=== PATIENT | male | born 1960 | race Caucasian/White ===

== ENCOUNTER 2016-08-17 12:55 | Inpatient (IN) | payer OTHER ==
[2016-08-17] VITALS (8 sets, daily range): BP systolic 112–143; BP diastolic 66–78; PULSE 71–98; RESP 16–18; TEMP 97.8–98; O2SAT 94–99
[~2016-08-17] VITALS: Ht 182.9 cm; Wt 97.1 kg
[~2016-08-17 12:55] MED LIST: ATOR20TA PO; AZIT500T2 PO; LISI-363 PO; METO25CR PO
[2016-08-17] MEDS ORDERED: LISI-515 PO (13:06)
[2016-08-17] MEDS ORDERED: ATOR20TA15 PO (13:06)
[2016-08-17] MEDS ORDERED: METO25TA3 PO (13:06)
[2016-08-17] MEDS ORDERED: SODIUM CHLORIDE 0.9% FLUSH 5 ML FLUSH IVF PRN (13:15)
[2016-08-17 13:23] LABS: AUTOMATED NEUTROPHIL # 4.3 TH/MM3 (1.8-7.7); BASOPHIL % 0.5 % (0.0-2.0); EOSINOPHIL # 0.1 TH/MM3 (0-0.4); EOSINOPHIL % 1.5 % (0.0-4.0); HEMATOCRIT 44.8 % (39.0-51.0); HEMO FLAGS DIFF FINAL; LYMPHOCYTE # 1.2 TH/MM3 (1.0-4.8); MEAN CELL VOLUME 89.4 FL (80.0-100.0); MEAN CORPUSCULAR HEMOGLOBIN 31.9 PG (27.0-34.0); MEAN CORPUSCULAR HGB CONC 35.7 % (32.0-36.0); MONO % 11.3 % (0.0-8.0); NEUT % 67.7 % (16.0-70.0); PLATELET COUNT 151 TH/MM3 (150-450); RED BLOOD COUNT 5.02 MIL/MM3 (4.50-5.90); RED CELL DISTRIBUTION WIDTH 12.8 % (11.6-17.2); WHITE BLOOD COUNT 6.3 TH/MM3 (4.0-11.0)
[2016-08-17 13:36] LABS: APTT (PATIENT) 24.9 SEC (24.3-30.1); PROTHROMBIN TIME - PATIENT 11.6 SEC (9.8-11.6)
[2016-08-17 13:39] LABS: BICARBONATE 28.5 MEQ/L (21.0-32.0)
--- NOTE | 2016-08-17 14:21 | RADRPT ---
EXAM DATE/TIME: 08/17/2016 13:27 [facility] COMPARISON: No previous studies available for comparison. INDICATIONS : Feeling dizzy with low blood pressure,syncope. RADIATION DOSE: 43.69 CTDIvol (mGy) MEDICAL HISTORY : Cardiovascular disease. Hypertension. SURGICAL HISTORY : None. ENCOUNTER: Initial ACUITY: 1 day PAIN SCALE: 0/10 LOCATION: cranial TECHNIQUE: Multiple contiguous axial images were obtained of the head. Using automated exposure control and adj ustment of the mA and/or kV according to patient size, radiation dose was kept as low as reasonably a chievable to obtain optimal diagnostic quality images. FINDINGS: CEREBRUM: The ventricles are normal for age. No evidence of midline shift, mass lesion, hemorrhage or acute in farction. No extra-axial fluid collections are seen. POSTERIOR FOSSA: The cerebellum and brainstem are intact. The 4th ventricle is midline. The cerebellopontine angle i s unremarkable. EXTRACRANIAL: The visualized portion of the orbits is intact. SKULL: The calvaria is intact. No evidence of skull fracture. CONCLUSION: Normal examination. Kristy Lieberman MD on August 17, 2016 at 13:52 Board Certified Radiologist. This report was verified electronically.
[2016-08-17 14:28] LABS: BACTERIA, URINE RARE /hpf; BLOOD, URINE NEG (NEG); GLUCOSE,URINE TRACE mg/dL (NEG); HYALINE CAST, URINE 14 /lpf (RARE); KETONE, URINE NEG (NEG); MUCUS URINE FEW /lpf (OCC); NITRITE,URINE NEG (NEG); PH, URINE 5.5 (5.0-8.5); SQUAMOUS EPITHELIAL CELL URINE 1 /hpf (0-5); URINE COLOR YELLOW (YELLW/STRAW)
[2016-08-17 14:31] LABS: COMMENT (UR) CATH-CULTURE IND; CULTURE IF INDICATED CATH CULTURE IND
--- NOTE | 2016-08-17 14:41 | PD ---
HPI Chief Complaint: Dizziness Time Seen by Provider: 12:58 Travel History International Travel<30 days: No Contact w/Intl Traveler<30days: No History of Present Illness HPI 56-year-old male came to the emergency room brought by EMS from his doctor's office after having a syncopal episode. Patient says that he has been sick with flulike symptoms for past 4-5 days. He stopped having fever 2-3 days ago. He was about to be discharged from his primary care's office with a prescription for Zithromax when he passed out while he was sitting on the chair. Patient says that this morning when he was taking shower he was dizzy as well. No history of vomiting or diarrhea. In the emergency room patient was noticed to be in atrial fibrillation. In fact there were two 12-lead EKG sent from the primary care's office that showed the atrial fibrillation as well. Upon asking patient said that he had history of A. fib 5 years ago for which she received abrasion after which she was in normal sinus rhythm. This particular A. fib is new for him. He is not on any anticoagulation. No history of chest pain. [facility] Past Medical History Narrative Medical List of his past medical history as reviewed from the nursing note. Cardiovascular Problems: Yes (HBP) High Cholesterol: Yes Diminished Hearing: No Hypertension: Yes Tetanus Vaccination: > 5 Years Influenza Vaccination: Yes Past Surgical History Cardiac Surgery: Yes (ABLATION) Social History Alcohol Use: Yes (OCASSIONALLY) Tobacco Use: No Substance Use: No Allergies-Medications (Allergen,Severity, Reaction): Coded Allergies: No Known Allergies (Unverified , 08/17/16) Comments No known drug allergies. Reported Meds & Prescriptions Reported Meds & Active Scripts Active Reported Atorvastatin (Atorvastatin Calcium) 20 Mg Tab 20 Mg PO DAILY Metoprolol Tartrate 25 Mg Tab 25 Mg PO DAILY Lisinopril 20 Mg Tab 20 Mg PO DAILY Narrative Medication List of his home medications reviewed from the nursing note. Review of Systems Except as stated in HPI: all other systems reviewed are Neg Physical Exam Narrative GENERAL: Awake, alert, moderate distress, obese SKIN: Warm and dry. HEAD: Atraumatic. Normocephalic. EYES: Pupils equal and round. No scleral icterus. No injection or drainage. ENT: No nasal bleeding or discharge. Mucous membranes pink and moist. NECK: Trachea midline. No JVD. CARDIOVASCULAR: Regular rate and rhythm. No murmur appreciated. RESPIRATORY: No accessory muscle use. Clear to auscultation. Breath sounds equal bilaterally. GASTROINTESTINAL: Abdomen soft, non-tender, nondistended. Hepatic and splenic margins not palpable. MUSCULOSKELETAL: No obvious deformities. No clubbing. No cyanosis. No edema. NEUROLOGICAL: Awake and alert. No obvious cranial nerve deficits. Motor grossly within normal limits. Normal speech. PSYCHIATRIC: Appropriate mood and affect; insight and judgment normal. Data Data Last Documented VS Vital Signs Date Time Temp Pulse Resp B/P Pulse Ox O2 Delivery O2 Flow Rate FiO2 08/17/16 14:00 86 16 118/69 98 Room Air 08/17/16 12:56 98.0 Orders Electrocardiogram (08/17/16 13:06) Prothrombin Time / Inr (Pt) (08/17/16 13:06) Act Partial Throm Time (Ptt) (08/17/16 13:06) Complete Blood Count With Diff (08/17/16 13:06) Basic Metabolic Panel (Bmp) (08/17/16 13:06) Creatine Kinase (Cpk) (08/17/16 13:06) Troponin I (08/17/16 13:06) Urinalysis - C+S If Indicated (08/17/16 13:06) Ct Brain W/O Iv Contrast(Rout) (08/17/16 13:06) Ecg Monitoring (08/17/16 13:06) Iv Access Insert/Monitor (08/17/16 13:06) Oximetry (08/17/16 13:06) Sodium Chloride 0.9% Flush (Ns Flush) (08/17/16 13:15) Urine Culture (08/17/16 14:00) Sodium Chlor 0.9% 1000 Ml Inj (Ns 1000 M (08/17/16 14:45) Heparin Infusion BENJAMIN.Q1H (08/17/16 14:36) Heparin Inj (Heparin Inj) (08/17/16 14:45) Heparin-D5w Inj (Heparin-D5w Inj) (08/17/16 14:45) Act Partial Throm Time (Ptt) (08/17/16 14:36) Cbc No Diff, Includes Plts (08/17/16 14:36) Act Partial Throm Time (Ptt) (08/17/16 21:36) Occult Blood (Hemoccult) Stool (08/17/16 14:36) Admit Order (Ed Use Only) (08/17/16 14:48) Labs Laboratory Tests Test 08/17/16 08/17/16 13:00 14:00 White Blood Count 6.3 TH/MM3 Red Blood Count 5.02 MIL/MM3 Hemoglobin 16.0 GM/DL Hematocrit 44.8 % Mean Corpuscular Volume 89.4 FL Mean Corpuscular Hemoglobin 31.9 PG Mean Corpuscular Hemoglobin 35.7 % Concent Red Cell Distribution Width 12.8 % Platelet Count 151 TH/MM3 Mean Platelet Volume 10.7 FL Neutrophils (%) (Auto) 67.7 % Lymphocytes (%) (Auto) 19.0 % Monocytes (%) (Auto) 11.3 % Eosinophils (%) (Auto) 1.5 % Basophils (%) (Auto) 0.5 % Neutrophils # (Auto) 4.3 TH/MM3 Lymphocytes # (Auto) 1.2 TH/MM3 Monocytes # (Auto) 0.7 TH/MM3 Eosinophils # (Auto) 0.1 TH/MM3 Basophils # (Auto) 0.0 TH/MM3 CBC Comment DIFF FINAL Differential Comment Prothrombin Time 11.6 SEC Prothromb Time International 1.0 RATIO Ratio Activated Partial 24.9 SEC Thromboplast Time Sodium Level 137 MEQ/L Potassium Level 5.0 MEQ/L Chloride Level 105 MEQ/L Carbon Dioxide Level 28.5 MEQ/L Anion Gap 4 MEQ/L Blood Urea Nitrogen 27 MG/DL Creatinine 1.51 MG/DL Estimat Glomerular Filtration 48 ML/MIN Rate Random Glucose 165 MG/DL Calcium Level 11.0 MG/DL Total Creatine Kinase 40 U/L Troponin I 0.02 NG/ML Urine Color YELLOW Urine Turbidity CLEAR Urine pH 5.5 Urine Specific [place] 1.018 Urine Protein 30 mg/dL Urine Glucose (UA) TRACE mg/dL Urine Ketones NEG mg/dL Urine Occult Blood NEG Urine Nitrite NEG Urine Bilirubin NEG Urine Urobilinogen LESS THAN 2.0 MG/DL Urine Leukocyte Esterase NEG Urine RBC LESS THAN 1 /hpf Urine WBC 2 /hpf Urine Squamous Epithelial 1 /hpf Cells Urine Bacteria RARE /hpf Urine Hyaline Casts 14 /lpf Urine Mucus FEW /lpf Microscopic Urinalysis Comment CATH-CULTURE IND Urine Opiates Screen NEG Urine Barbiturates Screen NEG Urine Amphetamines Screen NEG Urine Benzodiazepines Screen NEG Urine Cocaine Screen NEG Urine Cannabinoids Screen NEG MDM Medical Decision Making Medical Screen Exam Complete: Yes Emergency Medical Condition: Yes Medical Record Reviewed: Yes Interpretation(s) Twelve-lead EKG was reviewed by me. Atrial fibrillation, normal axis, PVC. Heart rate of 91 bpm. Differential Diagnosis Dehydration, new onset A. fib, pneumonia Narrative Course 2:58 PM blood test results of back and shows some dehydration. CAT scan of the head is within normal limits. I will order a chest x-ray and patient has been admitted to the family medicine residents. Critical Care Narrative Aggregate critical care time was 30 minutes. Time to perform other separately billable procedures was not included in the critical care time. My time did not include minutes spent treating any other patients simultaneously or on activities that did not directly contribute to the patient's treatment. The services I provided to this patient were to treat and/or prevent clinically significant deterioration that could result in: New-onset atrial fibrillation, heparin bolus and drip. I provided critical care services requiring my management, as noted below: Chart data review, documentation time, medication orders and management, vital sign assessments/reviewing monitor data, ordering and reviewing lab tests, ordering and interpreting/reviewing x-rays and diagnostic studies, care of the patient and discussion of the patient with the admitting physicians. Procedures EKG Prior to Arrival: Yes Diagnosis Primary Impression: New onset a-fib Additional Impressions: Syncope Qualified Code: R55 - Syncope, unspecified syncope type Orthostatic dizziness Admitting Information Admitting Physician Requests: Admit Scripts Aspirin 325 Mg [id number] Mg PO DAILY #30 TAB Ref 0 Prov:Cristian Collins MD R3 08/18/16 Benzonatate (Tessalon Perles)100 Mg [id number] Mg PO TID PRN (COUGH) #30 CAP Ref 0 Prov:Cristian Collins MD R3 08/18/16 Oseltamivir (Tamiflu)75 Mg Cap75 Mg PO BID #10 CAP Ref 0 Prov:Cristian Collins MD R3 08/18/16 Valencia Zhang MD Aug 17, 2016 14:41
[2016-08-17] MEDS ORDERED: SODIUM CHLOR 0.9% 1000 ML INJ 1,000 ML IV ONE (14:45)
[2016-08-17] MEDS ORDERED: HEPARIN SODIUM - IV 10,000 UNITS/10 ML VIAL IV ONE (14:45)
--- NOTE | 2016-08-17 14:55 | HHI.HP ---
HPI Service [facility] Medicine Primary Care Physician Shelby Khan MD Admission Diagnosis new onset atrial fibrillation, syncope, orthostatic Diagnoses: International Travel<30 Days: No Contact w/Intl Traveler<30days: No History of Present Illness This is a 56 year old male with history of atrial fibrillation s/p ablation in 2012 presenting with history of syncope. Mr. Wilburn was seen in the [facility] today for URI sxs over the past 5 days. He had been treating sxs with OTC decongestants, including Robitussin, Airborne, and Theraflu without any relief. Blood pressure was discovered to be in the 90/50 range in clinic, well below his baseline of 130/ 80. Orthostatics vital signs were obtained (supine: BP 92/48 HR 82, sittin/ 40 HR 95, standing 74/36 HR 43). Shortly after obtaining orthostatic vitals, patient had a syncopal episode. Per , he did hit his head. Episode lasted less than 1 minute. Per patient, felt lightheaded. No other prodrome sxs including palpitations or chest pain. No shaking of extremities or tongue biting. Accuchek in the clinic was 154. EKG showed atrial fibrillation with HR 94, a new finding compared to EKG in 2015. Was taken to ED via [facility] for further evaluation. EKG on admission again showed Afib with rate in the 90s. Labs on admission showed mild elevation of BUN and Cr. Patient was given a 1 L fluid bolus. Blood pressure in the 110/60s. Patient states sxs are improved since coming to the ED. Denies any dizziness at this time. No neurologic sxs, including speech difficulty, numbness/weakness in the extremities, or gait difficulty. Denies any chest pain. No palpitations. No nausea or vomiting. He denies history of prior syncopal episode or dizziness. No recent change in medications, other than OTC meds mentioned above. Mr. Wilburn had ablation for atrial fibrillation in 2012. This was done in [place]. Per patient converted within 1 hour of procedure. EKG in 2014 showed normal sinus rhythm. Patient does not see a eligibility analyst in [place]. (Cristian Collins MD R3) Review of Systems Constitutional: DENIES: Fever, Weight loss, Chills Endocrine: DENIES: Heat/cold intolerance, Polydipsia, Polyuria Eyes: DENIES: Blurred vision, Diplopia, Eye pain, Vision loss, Double Vision Ears, nose, mouth, throat: COMPLAINS OF: Nasal discharge, Throat pain, Hoarseness, Running Nose, Sinus Pain, DENIES: Tinnitus, Hearing loss, Vertigo, Oral lesions, Epistaxis, Toothache Respiratory: COMPLAINS OF: Cough, Sputum production, DENIES: Wheezing, Shortness of breath Cardiovascular: COMPLAINS OF: Syncope, DENIES: Chest pain, Palpitations, Dyspnea on Exertion Gastrointestinal: DENIES: Black stools, Bloody stools, Constipation, Diarrhea, Nausea, Vomiting Genitourinary: DENIES: Urinary frequency, Urgency, Dysuria Musculoskeletal: DENIES: Joint pain, Muscle aches, Stiffness, Back pain Integumentary: DENIES: Rash Hematologic/lymphatic: DENIES: Lymphadenopathy Neurologic: DENIES: Abnormal gait, Headache, Localized weakness, Paresthesias, Seizures, Speech Problems, Tremor, Poor Balance Psychiatric: DENIES: Mood changes (Cristian Collins MD R3) Past Family Social History Past Medical History H/O AFib treated with Ablation HTN HLD [employer] playing football Past Surgical History Sep 2012 - Cardioversion followed by Ablation Tonsillectomy as a kid Reported Medications Reported Meds & Active Scripts Active Reported Atorvastatin (Atorvastatin Calcium) 20 Mg Tab 20 Mg PO DAILY Metoprolol Tartrate 25 Mg Tab 25 Mg PO DAILY Lisinopril 20 Mg Tab 20 Mg PO DAILY (Cristian Collins MD R3) Allergies: Coded Allergies: No Known Allergies (Unverified , 08/17/16) Family History Mother, alive - healthy Father, alive - healthy, knee replacement, diverticulitis Social History Live in [facility] with of 15 years. Tobacco: denies ETOH: 6 drinks per week (wine, beer, or liquor) Drugs: denies (Cristian Collins MD R3) Physical Exam Vital Signs Vital Signs Date Time Temp Pulse Resp B/P Pulse Ox O2 Delivery O2 Flow Rate FiO2 08/17/16 14:00 86 16 118/69 98 Room Air 08/17/16 13:05 18 98 Room Air 08/17/16 13:00 78 18 98 Room Air 08/17/16 12:56 98.0 98 18 112/66 98 Physical Exam GENERAL: This is a well-nourished, well-developed patient, in no apparent distress. SKIN: No rashes, ecchymoses or lesions. Cool and dry. LEs dry with varicose veins. HEAD: Atraumatic. Normocephalic. No temporal or scalp tenderness. EYES: Pupils equal round and reactive. Extraocular motions intact. No scleral icterus. No injection or drainage. ENT: Nose without bleeding, purulent drainage or septal hematoma. Throat without erythema, tonsillar hypertrophy or exudate. Uvula midline. Airway patent. NECK: Trachea midline. No JVD or lymphadenopathy. Supple, nontender, no meningeal signs. CARDIOVASCULAR: Irregularly irregular rhythm with rate in the 90s on hard count. No murmurs. No carotid bruit appreciated. +2 radial and dorsalis pedis pulses. RESPIRATORY: Clear to auscultation. Breath sounds equal bilaterally. No wheezes , rales, or rhonchi. GASTROINTESTINAL: Abdomen soft, non-tender, nondistended. No hepato-splenomegaly , or palpable masses. No guarding. MUSCULOSKELETAL: Extremities without clubbing, cyanosis, or edema. No joint tenderness, effusion, or edema noted. No calf tenderness. No palpable cords. Negative Homans sign bilaterally. NEUROLOGICAL: Awake and alert. Cranial nerves II through XII intact. JOSE intact. Negative Rhomberg. Motor and sensory grossly within normal limits. Five out of 5 muscle strength in all muscle groups. Negative Babinski. Normal speech. Laboratory Laboratory Tests Test 08/17/16 08/17/16 13:00 14:00 White Blood Count 6.3 Red Blood Count 5.02 Hemoglobin 16.0 Hematocrit 44.8 Mean Corpuscular Volume 89.4 Mean Corpuscular Hemoglobin 31.9 Mean Corpuscular Hemoglobin 35.7 Concent Red Cell Distribution Width 12.8 Platelet Count 151 Mean Platelet Volume 10.7 Neutrophils (%) (Auto) 67.7 Lymphocytes (%) (Auto) 19.0 Monocytes (%) (Auto) 11.3 Eosinophils (%) (Auto) 1.5 Basophils (%) (Auto) 0.5 Neutrophils # (Auto) 4.3 Lymphocytes # (Auto) 1.2 Monocytes # (Auto) 0.7 Eosinophils # (Auto) 0.1 Basophils # (Auto) 0.0 CBC Comment DIFF FINAL Differential Comment Prothrombin Time 11.6 Prothromb Time International 1.0 Ratio Activated Partial 24.9 Thromboplast Time Sodium Level 137 Potassium Level 5.0 Chloride Level 105 Carbon Dioxide Level 28.5 Anion Gap 4 Blood Urea Nitrogen 27 Creatinine 1.51 Estimat Glomerular Filtration 48 Rate Random Glucose 165 Calcium Level 11.0 Total Creatine Kinase 40 Troponin I 0.02 Urine Color YELLOW Urine Turbidity CLEAR Urine pH 5.5 Urine Specific [place] 1.018 Urine Protein 30 Urine Glucose (UA) TRACE Urine Ketones NEG Urine Occult Blood NEG Urine Nitrite NEG Urine Bilirubin NEG Urine Urobilinogen LESS THAN 2.0 Urine Leukocyte Esterase NEG Urine RBC LESS THAN 1 Urine WBC 2 Urine Squamous Epithelial 1 Cells Urine Bacteria RARE Urine Hyaline Casts 14 Urine Mucus FEW Microscopic Urinalysis Comment CATH-CULTURE IND Date/Time Procedure Status Source Growth 08/17/16 14:00 Urine Culture Received Urine Catheterized Urine Pending (Cristian Collins MD R3) Result Diagram: 08/17/16 1300 08/17/16 1300 Septic Shock Reassessment Heart: Irregular Lungs: Clear Skin: Warm Capillary Refill: Brisk (Cristian Collins MD R3) Assessment and Plan Assessment and Plan 56 year old male admitted with recurrent Atrial Fibrillation and Syncope Code Status Full Code Discussed Condition With Dr. Murphy (Cristian Collins MD R3) Attending Attestation The patient has been seen and examined. The chart and all resident notes have been reviewed. I agree that inpatient care is appropriate and that a two midnight stay is expected for the reasons documented in the resident history and physical. I have discussed this with the resident and certify the resident s order for inpatient admission. (Giovanna Murphy MD) Problem List: (1) Syncope Status: Acute Plan: Patient presenting with syncope. Discovered to be in atrial fibrillation with rate in the 90s in clinic today. Fainting likely 2/2 cardiogenic syncope versus dehydration. -inpatient admission -monitor vitals, per protocol -tele -repeat orthostatic vitals tomorrow -neuro checks -monitor intake and output -fluid bolus given in the ED. Encourage PO hydration. -troponin negative x1, will trend x3 with EKGs -calcium 11, see management below -creatinine elevated, see management below -CK WNL -check TSH -blood alcohol, urine drug -CT head negative -check carotid artery u/s -2D echo (no echo on record here) -consult cardiology (2) Atrial fibrillation, new onset Status: Acute Plan: Recurrent Afib, as above. -rate relatively well controlled in the 90s. Continue home metoprolol 25 mg daily for now. -anticoagulation with heparin drip for now -cardiology consulted. Appreciate recs. (3) Elevated serum creatinine Status: Acute Plan: Creatinine 1.5 on admission. Uncertain baseline. Likely 2/2 dehydration. -fluid bolus given in ED. Encourage PO hydration. -check chemistry in the AM (4) Hypercalcemia Status: Acute Plan: Likely related to hemoconcentation. Re-check level in the AM. Needs further workup if persistently elevated. (5) URI (upper respiratory infection) Status: Acute Plan: Patient c/o URI sxs. Likely related to the common cold. -Agree with Azithromycin. Will treat with 5 day course. Broaden antibiotic coverage if worsens clinically. -Tessalon PRN for cough -Tylenol for fever -CXR shows atelectasis. Will start incentive spirometry. (6) HTN (hypertension) Status: Acute Plan: Hold home lisinopril given recent orthostatic hypotension with syncope. Will continue metoprolol for rate control, as above. -Clonidine PRN for SBP >160 (7) HLD (hyperlipidemia) Status: Acute Plan: Continue home statin. (8) Dietary counseling and surveillance Status: Acute Plan: Fluids: SLIV Diet: regular basic DVT ppx: heparin, as above AM labs: CBC, BMP, Calcium, Mg, Phos GI ppx: start Zantac if remains admitted (Cristian Collins MD R3) Physician Certification 2 Midnight Certification Type: Admission for Inpatient Services Order for Inpatient Services The services are ordered in accordance with Medicare regulations or non- Medicare payer requirements, as applicable. In the case of services not specified as inpatient-only, they are appropriately provided as inpatient services in accordance with the 2-midnight benchmark. Estimated LOS (days): 2 days is the estimated time the patient will need to remain in the hospital, assuming treatment plan goals are met and no additional complications. Post-Hospital Plan: Home (Cristian Collins MD R3) Problem Qualifiers (1) Syncope: Qualified Code: R55 - Syncope, unspecified syncope type (2) URI (upper respiratory infection): Qualified Code: J06.9 - Viral upper respiratory tract infection Cristian Collins MD R3 Aug 17, 2016 14:55 Giovanna Murphy MD Aug 18, 2016 17:12
[2016-08-17] MEDS: HEPARIN-D5W INJ 250 ML IV SCH (15:05)
[2016-08-17] MEDS ORDERED: SODIUM CHLORIDE 0.9% FLUSH 5 ML FLUSH IV PRN (15:15)
--- NOTE | 2016-08-17 15:28 | RADRPT ---
EXAM DATE/TIME: 08/17/2016 15:11 [facility] COMPARISON: No previous studies available for comparison. INDICATIONS : Syncope, A-Fib MEDICAL HISTORY : Hypertension. A-Fib SURGICAL HISTORY : None. ENCOUNTER: Initial ACUITY: 1 day PAIN SCORE: 0/10 LOCATION: Chest FINDINGS: Minimal bibasilar streakiness is noted consistent with probable atelectasis. The heart is normal. Th e pulmonary vascular pattern is normal. CONCLUSION: Minimal bibasilar streakiness consistent with probable atelectasis. rYn Domínguez MD on August 17, 2016 at 15:18 Board Certified Radiologist. This report was verified electronically.
[2016-08-17] MEDS: METOPROLOL TARTRATE 25 MG TAB PO SCH (16:15)
[2016-08-17] MEDS ORDERED: BENZONATATE 100 MG CAP PO PRN (16:30)
[2016-08-17] MEDS ORDERED: ACETAMINOPHEN 325 MG TAB PO PRN (16:30)
[2016-08-17] MEDS ORDERED: cloNIDine HCL 0.1 MG TAB PO PRN (16:30)
[2016-08-17 16:40] LABS: HEMATOCRIT 42.4 % (39.0-51.0); MEAN CELL VOLUME 90.5 FL (80.0-100.0); MEAN CORPUSCULAR HEMOGLOBIN 31.2 PG (27.0-34.0); MEAN CORPUSCULAR HGB CONC 34.5 % (32.0-36.0); PLATELET COUNT 135 TH/MM3 (150-450); RED BLOOD COUNT 4.68 MIL/MM3 (4.50-5.90); RED CELL DISTRIBUTION WIDTH 12.9 % (11.6-17.2); REVIEW FLAG FINAL; WHITE BLOOD COUNT 6.4 TH/MM3 (4.0-11.0)
[2016-08-17] MEDS ORDERED: ACETAMINOPHEN/HYDROcodone 325 MG/5 MG TAB PO PRN (16:45)
[2016-08-17] MEDS ORDERED: HYDROmorphone HCL PF 1 MG/ML VIAL IV PRN (16:45)
[2016-08-17] MEDS ORDERED: ONDANSETRON HCL 4 MG/2 ML VIAL IVP PRN (16:45)
[2016-08-17] MEDS ORDERED: AZITHROMYCIN 250 MG TAB PO ONE (17:00)
[2016-08-17 17:03] LABS: APTT (PATIENT) 117.1 SEC (24.3-30.1)
--- NOTE | 2016-08-17 17:06 | RADRPT ---
EXAM DATE/TIME: 08/17/2016 15:29 [facility] COMPARISON: No previous studies available for comparison. INDICATIONS : Syncope. MEDICAL HISTORY : Hypercholesterolemia. Hypertension. Syncope. Sputum production. SURGICAL HISTORY : Cardiac ablation. ENCOUNTER: Initial ACUITY: 1 day PAIN SCORE: 0/10 LOCATION: Bilateral neck PEAK SYSTOLIC VELOCITIES (cm/sec): ICA/CCA RATIO: Right: 1.8 Left: 1.3 ICA: Right: 110 Left: 93 CCA: Right: 61 Left: 74 ECA: Right: 62 Left: 129 VERTEBRAL: Right: 43 antegrade Left: 60 antegrade Elevated flow velocities and ICA/CCA ratios have been found to correlate with increased degrees of vessel stenosis, calculated as percentage of diameter relative to a normal segment of distal ICA/CCA FINDINGS: RIGHT CAROTID: There is moderate eccentric plaque seen in the right internal carotid artery. Visually, the flow lume n appears to be significantly reduced, however velocities are fairly unremarkable. LEFT CAROTID: No significant stenosis is visualized. The waveforms are within normal limits. VERTEBRAL ARTERIES: Antegrade flow is seen in both vertebral arteries. MISCELLANEOUS: None. CONCLUSION: Abnormal appearance of the right internal carotid artery, visually stenotic however without flow [place] abnormalities to additionally suggest pathology. CTA examination recommended for definitive eval uation if clinically indicated Milton Goyal MD on August 17, 2016 at 17:00 Board Certified Radiologist. This report was verified electronically.
--- NOTE | 2016-08-17 18:12 | HHI.PR ---
Addendum to Inpatient Note Addendum Reason: Additional Documentation Additional Information Received information from nursing staff that aPTT was elevated to 117.1 units at ~1 hr after starting drip. Will decrease Heparin by 200 U/hr (from 1692 to 1492 U/hr) and recheck at 6 hrs after starting drip. At that time, may resume protocol as usual. (Mauricio Neumann MD R2) Mauricio Neumann MD R2 Aug 17, 2016 18:11 Giovanna Murphy MD Aug 18, 2016 16:59
[2016-08-17] MEDS: SODIUM CHLORIDE 0.9% FLUSH 5 ML FLUSH IV SCH (21:00)
[2016-08-17 22:30] LABS: APTT (PATIENT) 65.6 SEC (24.3-30.1)
[2016-08-18] VITALS: BP 135/72; PULSE 74; RESP 18; TEMP 98.2; O2SAT 97
[2016-08-18 01:36] LABS: AMPHETAMINE, URINE NEG (NEG)
[2016-08-18 02:15] LABS: COCAINE, URINE NEG (NEG)
[2016-08-18 02:28] LABS: BARBITURATES, URINE NEG (NEG)
[2016-08-18 04:00] VITALS: BP 158/82; PULSE 73; RESP 18; TEMP 98.8; O2SAT 96
[2016-08-18 07:46] LABS: AUTOMATED NEUTROPHIL # 2.6 TH/MM3 (1.8-7.7); BASOPHIL % 0.6 % (0.0-2.0); EOSINOPHIL # 0.1 TH/MM3 (0-0.4); EOSINOPHIL % 1.7 % (0.0-4.0); HEMO FLAGS DIFF FINAL; LYMPH % 30.1 % (9.0-44.0); LYMPHOCYTE # 1.4 TH/MM3 (1.0-4.8); MEAN CELL VOLUME 89.7 FL (80.0-100.0); MEAN CORPUSCULAR HEMOGLOBIN 30.7 PG (27.0-34.0); MEAN CORPUSCULAR HGB CONC 34.3 % (32.0-36.0); MONO % 10.4 % (0.0-8.0); NEUT % 57.2 % (16.0-70.0); PLATELET COUNT 123 TH/MM3 (150-450); RED BLOOD COUNT 4.45 MIL/MM3 (4.50-5.90); WHITE BLOOD COUNT 4.6 TH/MM3 (4.0-11.0)
[2016-08-18 07:49] LABS: APTT (PATIENT) 62.2 SEC (24.3-30.1)
[2016-08-18 07:57] VITALS: BP 177/86; PULSE 72; RESP 20; TEMP 98.4; O2SAT 99
[2016-08-18 08:14] LABS: BICARBONATE 25.4 MEQ/L (21.0-32.0); MAGNESIUM 1.5 MG/DL (1.5-2.5); POTASSIUM 4.3 MEQ/L (3.5-5.1)
--- NOTE | 2016-08-18 08:20 | PD.CONS ---
HPI Service CV Consult Requested By Reason for Consult a-fib Primary Care Physician Shelby Khan MD History of Present Illness Here with h/o atrial fibrillation s/p DCC s/p ablation 2012 after a syncopal episode in his PCP office. He had been having a URI with fever for several days before seeing is PCP. He was not drinking fluids. His PCP found is blood pressure to be significantly low just prior to his syncope. He was incidentally found to be in a-fib, but has since returned to . He denies any chest pain, shortness of breath or palpitations (Charles Hernandez) Review of Systems Consitutional: DENIES: Fatigue, Fever, Chills, Weight gain, Weight loss Eyes: DENIES: Amaurosis Fugax, Change in vision HEENT: DENIES: Lightheadedness, Change in hearing Respiratory: DENIES: See HPI, Cough, Snoring, Shortness of breath, Wheezing, Sputum production Cardiovascular: COMPLAINS OF: See HPI Gastrointestinal: DENIES: Nausea, Vomiting, Change in bowel habits, Reflux, Bloody stools, Melena Genitourinary: DENIES: Urinary incontinence, Difficulty voiding Integumentary: DENIES: Rash Neurologic: DENIES: Tingling or numbness, Memory problems, Poor Balance, Stroke symptoms Musculoskeletal: DENIES: Joint pain, Muscle pain, Limited range of motion, Back pain Psychiatric: DENIES: Anxiety, Depression, Sleep disturbances Hematologic: DENIES: Bruising tendencies, Bleeding tendencies Endocrine: DENIES: Weight gain, Weight loss, Thyroid disease (Charles Hernandez ) Past Family Social History Allergies: Coded Allergies: No Known Allergies (Unverified , 08/17/16) Past Medical History see HPI HTN Hyperlipidemia Broke wrist playing football Past Surgical History see HPI Tonsillectomy as a kid Reported Medications Atorvastatin (Atorvastatin Calcium) 20 Mg Tab 20 Mg PO DAILY Metoprolol Tartrate 25 Mg Tab 25 Mg PO DAILY Lisinopril 20 Mg Tab 20 Mg PO DAILY Family History noncontributory Social History Tobacco: denies ETOH: 6 drinks per week (wine, beer, or liquor) Drugs: denies (Charles Hernandez) Physical Exam Vital Signs Vital Signs Date Time Temp Pulse Resp B/P Pulse Ox O2 Delivery O2 Flow Rate FiO2 08/18/16 07:57 98.4 72 20 177/86 99 08/18/16 04:00 98.8 73 18 158/82 96 08/18/16 00:00 98.2 74 18 135/72 97 08/17/16 20:14 71 08/17/16 20:00 98.0 73 18 143/76 97 08/17/16 18:42 97.8 78 17 118/71 98 08/17/16 18:30 94 21 08/17/16 16:25 97.8 86 17 118/78 99 Room Air 08/17/16 14:00 86 16 118/69 98 Room Air 08/17/16 13:05 18 98 Room Air 08/17/16 13:00 78 18 98 Room Air 08/17/16 12:56 98.0 98 18 112/66 98 Physical Exam GENERAL: Well-nourished, well-developed patient in no apparent distress. NECK: No JVD. No carotid bruit. CARDIOVASCULAR: Regular rate and rhythm. S1/S2 no murmur, rub, or gallop. RESPIRATORY: No accessory muscle use. Clear to auscultation. Breath sounds equal bilaterally. GASTROINTESTINAL: Abdomen soft, non-tender, nondistended. MUSCULOSKELETAL: Extremities without clubbing, cyanosis, or edema. Laboratory Laboratory Tests Test 08/17/16 08/17/16 08/17/16 08/17/16 13:00 14:00 15:50 16:30 White Blood Count 6.3 6.4 Red Blood Count 5.02 4.68 Hemoglobin 16.0 14.6 Hematocrit 44.8 42.4 Mean Corpuscular Volume 89.4 90.5 Mean Corpuscular Hemoglobin 31.9 31.2 Mean Corpuscular Hemoglobin 35.7 34.5 Concent Red Cell Distribution Width 12.8 12.9 Platelet Count 151 135 Mean Platelet Volume 10.7 10.6 Neutrophils (%) (Auto) 67.7 Lymphocytes (%) (Auto) 19.0 Monocytes (%) (Auto) 11.3 Eosinophils (%) (Auto) 1.5 Basophils (%) (Auto) 0.5 Neutrophils # (Auto) 4.3 Lymphocytes # (Auto) 1.2 Monocytes # (Auto) 0.7 Eosinophils # (Auto) 0.1 Basophils # (Auto) 0.0 CBC Comment DIFF FINAL Differential Comment Prothrombin Time 11.6 Prothromb Time International 1.0 Ratio Activated Partial 24.9 117.1 Thromboplast Time Sodium Level 137 Potassium Level 5.0 Chloride Level 105 Carbon Dioxide Level 28.5 Anion Gap 4 Blood Urea Nitrogen 27 Creatinine 1.51 Estimat Glomerular Filtration 48 Rate Random Glucose 165 Calcium Level 11.0 Total Creatine Kinase 40 Troponin I 0.02 Urine Color YELLOW Urine Turbidity CLEAR Urine pH 5.5 Urine Specific [place] 1.018 Urine Protein 30 Urine Glucose (UA) TRACE Urine Ketones NEG Urine Occult Blood NEG Urine Nitrite NEG Urine Bilirubin NEG Urine Urobilinogen LESS THAN 2.0 Urine Leukocyte Esterase NEG Urine RBC LESS THAN 1 Urine WBC 2 Urine Squamous Epithelial 1 Cells Urine Bacteria RARE Urine Hyaline Casts 14 Urine Mucus FEW Microscopic Urinalysis Comment CATH-CULTURE IND Urine Opiates Screen NEG Urine Barbiturates Screen NEG Urine Amphetamines Screen NEG Urine Benzodiazepines Screen NEG Urine Cocaine Screen NEG Urine Cannabinoids Screen NEG Ethyl Alcohol Level LESS THAN 3 Test 08/17/16 08/18/16 08/18/16 21:32 00:41 06:36 Activated Partial 65.6 62.2 Thromboplast Time Troponin I 0.02 0.02 Thyroid Stimulating Hormone 1.340 3rd Gen White Blood Count 4.6 Red Blood Count 4.45 Hemoglobin 13.7 Hematocrit 40.0 Mean Corpuscular Volume 89.7 Mean Corpuscular Hemoglobin 30.7 Mean Corpuscular Hemoglobin 34.3 Concent Red Cell Distribution Width 13.0 Platelet Count 123 Mean Platelet Volume 10.9 Neutrophils (%) (Auto) 57.2 Lymphocytes (%) (Auto) 30.1 Monocytes (%) (Auto) 10.4 Eosinophils (%) (Auto) 1.7 Basophils (%) (Auto) 0.6 Neutrophils # (Auto) 2.6 Lymphocytes # (Auto) 1.4 Monocytes # (Auto) 0.5 Eosinophils # (Auto) 0.1 Basophils # (Auto) 0.0 CBC Comment DIFF FINAL Differential Comment Date/Time Procedure Status Source Growth 08/17/16 16:30 Influenza Types A,B Antigen (MY) - Final Complete Nasal Aspirate Positive For Flu A Antigen 08/17/16 14:00 Urine Culture Received Urine Catheterized Urine Pending (Charles Hernandez) Result Diagram: 08/18/16 0636 08/17/16 1300 Assessment and Plan Problem List: (1) History of atrial fibrillation Assessment and Plan With this occurrence of a-fib we ought to get a one week event monitor to document a-fib burden and a 2D echo. Both of these test can be done has an outpatient. He can be discharged home for a CV standpoint. He should take ASA 325 mg for the meantime. HTN - restart lisinopril at 10 mg daily (Charles Hernandez) Assessment and Plan syncope unclear etiology h/o afib recent infection dehydration DC home outpatient holter monitor hydrate FU in OPD (Gomez Hong MD) Charles Hernandez Aug 18, 2016 08:20 Gomez Hong MD Aug 18, 2016 11:52
[2016-08-18 08:21] VITALS: O2SAT 97
[2016-08-18] MEDS: SODIUM CHLORIDE 0.9% FLUSH 5 ML FLUSH IV SCH (08:42)
[2016-08-18] MEDS: METOPROLOL TARTRATE 25 MG TAB PO SCH (08:42)
[2016-08-18] MEDS: HEPARIN-D5W INJ 250 ML IV SCH (08:47)
[2016-08-18] MEDS ORDERED: ATORVASTATIN 20 MG TAB PO SCH (09:00)
[2016-08-18] MEDS ORDERED: LISINOPRIL 10 MG TAB PO SCH (09:00)
[2016-08-18] MEDS ORDERED: AZITHROMYCIN 250 MG TAB PO SCH (09:00)
[2016-08-18] MEDS ORDERED: LISINOPRIL 20 MG TAB PO SCH (09:00)
--- NOTE | 2016-08-18 10:28 | HHI.FPPN ---
Subjective Remarks Patient seen this morning. No acute events overnight. SBP up as high as the 170s this morning. Still feels fatigued with body aches. No longer dizzy. No SOB or CP. FLU A was positive. Cardiology has cleared, recommend 1 week Holter monitor. No events on tele overnight. (Cristian Collins MD R3) Objective Vitals Vital Signs Date Time Temp Pulse Resp B/P Pulse Ox O2 Delivery O2 Flow Rate FiO2 08/18/16 08:21 97 08/18/16 07:57 98.4 72 20 177/86 99 08/18/16 04:00 98.8 73 18 158/82 96 08/18/16 00:00 98.2 74 18 135/72 97 08/17/16 20:14 71 08/17/16 20:00 98.0 73 18 143/76 97 08/17/16 18:42 97.8 78 17 118/71 98 08/17/16 18:30 94 21 08/17/16 16:25 97.8 86 17 118/78 99 Room Air 08/17/16 14:00 86 16 118/69 98 Room Air 08/17/16 13:05 18 98 Room Air 08/17/16 13:00 78 18 98 Room Air 08/17/16 12:56 98.0 98 18 112/66 98 I/O 08/17/16 08/17/16 08/17/16 08/18/16 08/18/16 08/18/16 07:00 15:00 23:00 07:00 15:00 23:00 Intake Total 478 ml 358 ml Output Total 500 ml 750 ml 275 ml Balance -500 ml -272 ml 83 ml Intake Oral 360 ml 240 ml IV Total 118 ml 118 ml Output Urine Total 500 ml 750 ml 275 ml # Voids 1 1 # Bowel Movements 0 0 0 (Cristian Collins MD R3) Result Diagram: 08/18/1636 08/18/16635 Objective Remarks GENERAL: This is a well-nourished, well-developed patient, in no apparent distress. SKIN: No rashes, ecchymoses or lesions. Cool and dry. LEs dry with varicose veins. CARDIOVASCULAR: Irregularly irregular rhythm with rate in the 70s on hard count. No murmurs. No carotid bruit appreciated. +2 radial and dorsalis pedis pulses. RESPIRATORY: Clear to auscultation. Breath sounds equal bilaterally. No wheezes , rales, or rhonchi. GASTROINTESTINAL: Abdomen soft, non-tender, nondistended. No hepato-splenomegaly , or palpable masses. No guarding. MUSCULOSKELETAL: Extremities without clubbing, cyanosis, or edema. No joint tenderness, effusion, or edema noted. No calf tenderness. No palpable cords. Negative Homans sign bilaterally. NEUROLOGICAL: Awake and alert. Normal speech. (Cristian Collins MD R3) A/P Assessment and Plan 56 year old male admitted with recurrent Atrial Fibrillation and Syncope. Now with resolved dizziness. Still in AFib, with rate in the 70s. Discharge Planning Anticipate DC home today. Cleared by cards. Needs Outpatient Holter. Will discuss with Dr. Murphy (Cristian Collins MD R3) Attending Attestation Patient seen and examined. Case reviewed and discussed Agree with plan of care as discussed with me and documented in the resident note. (Giovanna Murphy MD) Problem List: (1) Syncope Status: Acute Plan: Improved. Likely combination of Afib and dehydration. -tele -Encourage PO hydration. -ACS r/o negative -calcium 11 on admission, now WNL -creatinine elevated on admission, now WNL -CK WNL -TSH WNL -blood alcohol, urine drug neg -CT head negative -carotid artery u/s, no clinically significant flow velocity abnormality -2D echo as outpatient -appreciate cards recs. Holter as outpatient. (2) Atrial fibrillation, new onset Status: Acute Plan: Improved. Rate controlled. -continue home metoprolol 25 mg daily for now. -on heparin drip. CHADS-vasc score of 1. Aspirin for now. -cardiology consulted. Appreciate recs. (3) Elevated serum creatinine Status: Acute Plan: Resolved. Creatinine 1.5 on admission, now WNL. -fluid bolus given in ED. Encourage PO hydration. (4) Hypercalcemia Status: Acute Plan: Resolved. Likely related to hemoconcentation. (5) URI (upper respiratory infection) Status: Acute Plan: FLU A positive. -DC Azithromycin. Start 5 day course of Tamiflu. -Tessalon PRN for cough -Tylenol for fever -CXR shows atelectasis. Will start incentive spirometry. (6) HTN (hypertension) Status: Acute Plan: Restart home lisinopril as SBP now in 170s. Will continue metoprolol for rate control, as above. -Clonidine PRN for SBP >160 (7) HLD (hyperlipidemia) Status: Acute Plan: Continue home statin. (8) Dietary counseling and surveillance Status: Acute Plan: Fluids: SLIV Diet: regular basic DVT ppx: heparin (Cristian Collins MD R3) Problem Qualifiers (1) Syncope: Qualified Code: R55 - Syncope, unspecified syncope type (2) URI (upper respiratory infection): Qualified Code: J06.9 - Viral upper respiratory tract infection Cristian Collins MD R3 Aug 18, 2016 10:28 Giovanna Murphy MD Aug 18, 2016 17:06
[2016-08-18] MEDS ORDERED: ASPI325T PO (10:45)
[2016-08-18] MEDS ORDERED: BENZ100 PO (10:45)
[2016-08-18] MEDS ORDERED: OSEL75 PO (10:45)
--- NOTE | 2016-08-18 10:45 | HHI.DCPOC ---
Discharge Care Plan Diagnosis: (1) New onset a-fib (2) Influenza A Goals to Promote Your Health * To prevent worsening of your condition and complications * To maintain your health at the optimal level Directions to Meet Your Goals Take your medications as prescribed Follow your dietary instruction Follow activity as directed Keep your appointments as scheduled Take your immunizations and boosters as scheduled If your symptoms worsen call your PCP, if no PCP go to Urgent Care Center or Emergency Room Smoking is Dangerous to Your Health. Avoid second hand smoke Call the 24-hour hour crisis hotline for domestic abuse at Cristian Collins MD R3 Aug 18, 2016 10:45
--- NOTE | 2016-08-18 14:07 | EC ---
Study Study Date:08/17/2016 STUDY CONCLUSIONS SUMMARY - Left ventricle: The cavity size was normal. Systolic function was at the lower limits of normal. The estimated ejection fraction was in the range of 50% to 55%. Wall motion was normal; there were no regional wall motion abnormalities. Left ventricular diastolic function parameters were normal. - Pulmonary arteries: PA peak pressure: 33mm Hg (S). If LV function is below 40, please consider prescribing an ACEI or ARB or document rationale for non-use. PROCEDURE DATA STUDY STATUS: Elective. Procedure: Transthoracic echocardiography. Image quality was good. Scanning was performed from the parasternal, apical, and subcostal acoustic windows. Study completion: The patient tolerated the procedure well. Transthoracic echocardiography. M-mode, complete 2D, complete spectral Doppler, and color Doppler. Patient status: Inpatient. CARDIAC ANATOMY LEFT VENTRICLE: The cavity size was normal. Systolic function was at the lower limits of normal. The estimated ejection fraction was in the range of 50% to 55%. Wall motion was normal; there were no regional wall motion abnormalities. Left ventricular diastolic function parameters were normal. AORTIC VALVE: Probably trileaflet. Doppler: There was no stenosis. No significant regurgitation. MITRAL VALVE: The valve appears to be grossly normal. Doppler: There was no evidence for stenosis. Trace regurgitation. LEFT ATRIUM: The atrium was normal in size. RIGHT VENTRICLE: The cavity size was normal. Systolic function was normal. PULMONIC VALVE: Not well visualized. TRICUSPID VALVE: The valve appears to be grossly normal. Doppler: There was no evidence for stenosis. Trace regurgitation. PERICARDIUM: There was no pericardial effusion. BASIC MEASUREMENTS ADULT NORMAL Left ventricle LV internal dimension, ED, chordal level, 43.8 mm 43-52 PLAX LV posterior wall thickness, ED 8.57 mm IVS/LVPW ratio, ED 1.28 <1.3 Ventricular septum Septal thickness, ED 11 mm Aortic valve Leaflet separation 22 mm 15-26 Left atrium Anterior-posterior dimension 34 mm Right ventricle RV internal dimension, ED, PLAX 25.6 mm 19-38 BASIC MEASUREMENTS ADULT NORMAL Aortic valve Leaflet separation 22 mm 15-26 Aorta Root diameter, ED 37 mm 20-37 DOPPLER MEASUREMENTS ADULT NORMAL Main pulmonary artery Pressure, S *33 mm Hg =30 Mitral valve Peak E-wave velocity 56.8 cm/s Peak A-wave velocity 46 cm/s Peak E/A ratio 1.2 Tricuspid valve Regurgitant peak velocity 226 cm/s Peak RV-RA gradient, S 20 mm Hg Maximal regurgitant velocity 226 cm/s Systemic veins Estimated CVP 10 mm Hg Right ventricle RV pressure, S *33 mm Hg <30 LEGEND: Mean values are shown as u=mean value. Asterisk (*) lemon values outside specified normal range. Prepared and signed by Carlos Alberto Vernon [id number]
--- NOTE | 2016-08-18 16:07 | HHI.FPPN ---
Subjective Subjective Patient seen and examined. Case reviewed and discussed Please refer to resident H&P for further details regarding HPI, ROS, PMH, SurgHx , FH and SocHx In summary, patient is a 56yoM who was seen in the [facility] acutes clinic on the day of admission and sent to the ED. He was found to have atrial fibrillation, and also tested + for influenza today. Today he remains rate-controlled. He was seen by cardiology and will have outpatient Holter monitor completed. He feels ready to go home. Hospital Objective Objective Last Impressions Head CT 08/17/16 1306 Signed Impressions: Service Date/Time: Wednesday, August 17, 2016 13:27 - CONCLUSION: Normal examination. Kristy Lieberman MD Chest X-Ray 08/17/16 0000 Signed Impressions: Service Date/Time: Wednesday, August 17, 2016 15:11 - CONCLUSION: Minimal bibasilar streakiness consistent with probable atelectasis. Yrn Domínguez MD Carotid Artery Ultrasound 08/17/16 0000 Signed Impressions: Service Date/Time: Wednesday, August 17, 2016 15:29 - CONCLUSION: Abnormal appearance of the right internal carotid artery, visually stenotic however without flow velocity abnormalities to additionally suggest pathology. CTA examination recommended for definitive evaluation if clinically indicated Milton Goyal MD Laboratory Tests - Abnormals Test 08/17/16 08/18/16 21:32 06:36 Activated Partial 65.6 SEC 62.2 SEC Thromboplast Time Red Blood Count 4.45 MIL/MM3 Platelet Count 123 TH/MM3 Monocytes (%) (Auto) 10.4 % Blood Urea Nitrogen 23 MG/DL Estimat Glomerular Filtration 70 ML/MIN Rate Phosphorus Level 1.7 MG/DL Vital Signs 08/17/16 08/17/16 08/17/16 08/17/16 16:25 18:30 18:42 20:00 Temp 97.8 97.8 98.0 Pulse 86 78 73 Resp 17 18 B/P 118/78 118/71 143/76 Pulse Ox 99 94 98 97 O2 Delivery Room Air FiO2 21 08/17/16 08/18/16 08/18/16 08/18/16 20:14 00:00 04:00 07:57 Temp 98.2 98.8 98.4 Pulse 71 74 73 72 Resp 18 18 20 B/P 135/72 158/82 177/86 Pulse Ox 97 96 99 08/18/16 08:21 Pulse Ox 97 INTAKE & OUTPUT 08/18/16 07:00 Intake Total 836 ml Output Total 1525 ml Balance -689 ml Physical exam GENERAL: Resting in bed, wdwn SKIN: Warm and dry. No rashes HEAD: Normocephalic. AT EYES: No scleral icterus. No injection or drainage. NECK: Supple, trachea midline. No JVD or lymphadenopathy. CARDIOVASCULAR: Irregularly irregular rhythm, rate-controlled without murmurs, gallops, or rubs. RESPIRATORY: Breath sounds equal and clear bilaterally. No accessory muscle use. GASTROINTESTINAL: Abdomen soft, non-tender, nondistended. MUSCULOSKELETAL: No cyanosis, or edema. BACK: Nontender without obvious deformity. No CVA tenderness. Assessment Assessment 56yoM admitted with: Afib, s/p ablation in 2012 Influenza HTN HL Mild renal insufficiency PLAN PLAN ASA Cardiology consulted- will do outpatient Holter BBlocker Outpatient CTA neck to follow-up carotid ultrasound results Tamiflu Resume home meds as appropriate Heparin Patient seen and examined Case reviewed and discussed Agree with plan of care as discussed with me and documented in the resident note Giovanna Murphy MD Aug 18, 2016 16:07
--- NOTE | 2016-08-18 17:00 | EKG ---
Date Performed: 08/17/2016 Time Performed: 13:18:41 PTAGE: 56 years EKG: ATRIAL FIBRILLATION WITH ABERRANT CONDUCTION OR VENTRICULAR PREMATURE COMPLEXES Consider an terolateral [place]-age indeterminate ABNORMAL RHYTHM ECG NO PREVIOUS TRACING DOCTOR: Chapin Khan Interpretating Date/Time 08/18/2016 16:58:12
--- NOTE | 2016-08-18 17:00 | EKG ---
Date Performed: 08/17/2016 Time Performed: 16:44:49 PTAGE: 56 years EKG: Sinus rhythm INFERIOR MYOCARDIAL INFARCTION-age undetermined When compared to previous tracing, patient is now in normal sinus Rhythm. ABNORMAL ECG PREVIOUS TRACING : 08/17/2016 13.18 DOCTOR: Chapin Khan Interpretating Date/Time 08/18/2016 17:00:06
[2016-09-29] MEDS ORDERED: METO25TA3 PO ×2 (11:40→11:42)
[2016-09-29] MEDS ORDERED: LISI-515 PO (11:40)
[2016-09-29] MEDS ORDERED: ATOR20TA15 PO (11:40)
[2016-11-30] MEDS ORDERED: ATOR20TA15 PO (13:44)
[2016-11-30] MEDS ORDERED: LISI-515 PO (13:44)
[2016-11-30] MEDS ORDERED: METO25TA3 PO (13:47)
== END 2016-08-18 12:14 | disposition home or self-care (01) | DRG 309 ==
LOC: NEPA 12:55 → NEDA 14:51 → N04B 18:54
PROVIDERS: ADMIT Family Medicine; ATTEND Family Medicine
DX: I48.91 Unspecified atrial fibrillation (principal); J98.11 Atelectasis; E83.52 Hypercalcemia; I10 Essential (primary) hypertension; R55 Syncope and collapse; E86.0 Dehydration; J10.1 Influenza due to other identified influenza virus with other respiratory manifestations; J06.9 Acute upper respiratory infection, unspecified; N28.9 Disorder of kidney and ureter, unspecified; I95.1 Orthostatic hypotension; E78.5 Hyperlipidemia, unspecified
CPT/HCPCS: 70450; 71010; 80048; 80307; 80320; 81001; 82550; 83735; 84100; 84443; 84484; 85025; 85027; 85610; 85730; 87086; 87804; 93005; 93306; 93880; 94150; J1644; J7030